=== PATIENT | female | born 1950 | race Two or more races ===

== ENCOUNTER 2017-06-01 10:43 | Inpatient (IN) | payer OTHER ==
[~2017-06-01] VITALS: Ht 162.6 cm; Wt 69.8 kg
[2017-06-01 10:49] VITALS: Ht 162.6 cm; Wt 69.8 kg
[2017-06-01 13:10] LABS: BASOPHIL % 0.3 % (0-2); PLATELET COUNT 252 x10^3mcL (130-400); RED CELL DISTRIBUTION WIDTH 14.4 % (11.5-14.5)
[2017-06-01 13:13] LABS: microscopic required? YES; urine erythrocyte TRACE (NEGATIVE)
[2017-06-01 13:14] LABS: CALCIUM 8.4 mg/dL (8.5-10.1); CARBON DIOXIDE 27.1 mmol/L (21-32); CHLORIDE SERUM 101 mmol/L (98-107); GFR1 59 mL/min; GLUCOSE SERUM 108 mg/dL (74-106); POTASSIUM SERUM 4.2 mmol/L (3.5-5.1); SODIUM SERUM 138 mmol/L (136-145)
[2017-06-01 13:18] LABS: ALBUMIN 3.8 g/dL (3.4-5.0); ALKALINE PHOSPHATASE 51 U/L (46-116); ALT/SGPT 23 U/L (14-59); AST/SGOT 31 U/L (15-37); BILIRUBIN TOTAL 0.44 mg/dL (0.20-1.00); CHOLESTEROL 157 mg/dL (<200)
[2017-06-01 13:57] LABS: AMPHETAMINE QUAL UR NONE DETECTED (NEG <=1000)
[2017-06-01] MEDS ORDERED: ALENDRONATE SOD70 M2 PO (14:23)
[2017-06-01] MEDS ORDERED: LISINOPRIL2.5 MG PO (14:23)
[2017-06-01 15:03] VITALS: BP 145/78
[2017-06-01 18:04] VITALS: BP 140/86
[2017-06-01 18:06] LABS: T3 TOTAL 1.01 ng/mL
[2017-06-01 18:10] LABS: CHOLESTEROL/HDL RATIO 3.4; MAGNESIUM 2.5 mg/dL (1.8-2.4)
[2017-06-01 18:17] LABS: FREE T4 1.59 ng/dL (0.76-1.46); FREE THYROXINE INDEX 3.7 ug/dL (1.4-4.5); T4(THYROXINE) 9.7 ug/dL (4.7-13.3)
[2017-06-01 21:11] VITALS: BP 128/72
[2017-06-02 05:18] LABS: BASOPHIL % 0.5 % (0-2); PLATELET COUNT 218 x10^3mcL (130-400); RED CELL DISTRIBUTION WIDTH 14.4 % (11.5-14.5)
[2017-06-02 05:19] LABS: CALCIUM 7.3 mg/dL (8.5-10.1); CARBON DIOXIDE 25.8 mmol/L (21-32); CHLORIDE SERUM 104 mmol/L (98-107); CREATININE SERUM 0.9 mg/dL (0.6-1.0); GFR1 > 60 mL/min; GLUCOSE SERUM 94 mg/dL (74-106); POTASSIUM SERUM 3.8 mmol/L (3.5-5.1); SODIUM SERUM 138 mmol/L (136-145)
[2017-06-02 05:29] VITALS: BP 140/75
[2017-06-02] MEDS ORDERED: PHARMASSURE VI500 MG PO (08:27)
[2017-06-02] MEDS ORDERED: LAC PO (08:33)
[2017-06-02] MEDS ORDERED: MAC100 PO (08:33)
[2017-06-02 08:49] VITALS: BP 126/81
[2017-06-02 10:33] VITALS: BP 140/75
== END 2017-06-02 10:55 | disposition home or self-care (01) | DRG 113 ==
LOC: ED 10:43 → DU 13:54
PROVIDERS: Family Medicine; Specialist
DX: J11.1 Influenza due to unidentified influenza virus with other respiratory manifestations (principal); E83.51 Hypocalcemia; I10 Essential (primary) hypertension; G90.8 Other disorders of autonomic nervous system; M19.90 Unspecified osteoarthritis, unspecified site; Z83.3 Family history of diabetes mellitus; Z82.49 Family history of ischemic heart disease and other diseases of the circulatory system; N39.0 Urinary tract infection, site not specified; R31.9 Hematuria, unspecified
CPT/HCPCS: 82962; 83880; 84439; 87804; G0480; J0696; J7030; Q0092